=== PATIENT | female | born 1990 | race Hispanic/Latino ===

== ENCOUNTER 2017-06-05 00:26 | Emergency (ER) | payer OTHER ==
[~2017-06-05 00:26] MED LIST: AMOXICILLIN500 MG PO; DIFLUCAN150 MG PO; FLAGYL500 MG OR; FLONASE NASAL50 MCG; MIRENA; PARAGARD EX; ZPAK PO
[2017-06-05] MEDS ORDERED: MONONESSA PO (01:03)
[2017-06-05 01:20] LABS: HEMATOCRIT 41.7 % (37.0-47.0); HEMOGLOBIN 14.6 g/dl (12.0-16.0); IMMATURE GRANULOCYTES 0.5 % (0.0-1.0); MEAN CELL VOLUME 87.2 fL CALC (80.0-100.0); MEAN CORPUSCULAR HGB 30.5 pG CALC (26.0-32.0); NEUT# 5.92 thou/uL (2.00-7.15); RED BLOOD COUNT 4.78 mill/uL (4.20-5.60); RED CELL DISTRI WIDTH 12.6 % (11.5-15.5)
[2017-06-05 01:21] LABS: URINE BILIRUBIN - DIPSTICK NEGATIVE (NEGATIVE); URINE BLOOD DIPSTICK SMALL (NEGATIVE); URINE CLARITY CLEAR; URINE COLOR YELLOW; URINE GLUCOSE - DIPSTICK NEGATIVE (NEGATIVE); URINE KETONE NEGATIVE (NEGATIVE); URINE LEUK ESTERASE NEGATIVE (NEGATIVE); URINE NITRITE - DIPSTICK NEGATIVE (Negative); URINE PROTEIN - DIPSTICK NEGATIVE (NEG-TRACE); URINE SPECIFIC GRAVITY <=1.005; URINE UROBILINOGEN - DIPSTICK 0.2 E.U./dL (0.2)
[2017-06-05 01:27] LABS: URINE MUCUS FEW hpf (NONE-FEW); URINE SQUAMOUS EPITHELIAL CELL FEW EPI/hpf (0-FEW); URINE WBC 0-2 WBC/hpf (0-5)
[2017-06-05 01:30] LABS: ALBUMIN 4.3 g/dL (3.2-5.0); ALKALINE PHOSPHATASE 93 u/l (38-126); ANION GAP 18 (6-22 (CALC)); BILIRUBIN, TOTAL 0.6 mg/dL (0.0-1.4); BUN 7 mg/dL (7-17); BUN/CREATININE RATIO 14 (12-20 (CALC)); CALCIUM 9.6 mg/dL (8.4-10.2); CARBON DIOXIDE 23 mmol/l (22-30); CHLORIDE 103 mmol/l (95-108); CREATININE 0.5 mg/dL (0.5-1.0); GFR > 60 ML/MIN (>=60 (CALC)); GFR FOR AFR.AMER. > 60 ML/MIN (>=60 (CALC)); GLUCOSE 84 mg/dL (65-105); POTASSIUM 3.5 mmol/l (3.5-5.1); SGOT/AST 34 u/l (14-36); SGPT/ALT 50 u/l (9-52); SODIUM 140 mmol/l (137-146); TOTAL PROTEIN 7.4 g/dL (6.3-8.2)
[2017-06-05] MEDS ORDERED: BENTYL20 MG PO (03:09)
[2017-06-05] MEDS ORDERED: TORADOL PO (03:09)
[2017-06-05] MEDS ORDERED: ZOFRAN ODT4 MG PO (03:27)
[2017-06-05 03:30] VITALS: BP 110/60
== END 2017-06-05 03:35 | disposition home or self-care (01) | DRG 392 ==
LOC: ED 00:26
PROVIDERS: Emergency Medicine
DX: K52.9 Noninfective gastroenteritis and colitis, unspecified (principal)
CPT/HCPCS: Q9967

== ENCOUNTER 2018-05-23 23:01 | Emergency (ER) | payer OTHER ==
[~2018-05-23] VITALS: Ht 157.5 cm; Wt 82.0 kg
[~2018-05-23 23:01] MED LIST changes: +BENTYL20 MG PO; +MONONESSA PO; +TORADOL PO; +ZOFRAN ODT4 MG PO
[2018-05-24 00:13] VITALS: BP 122/67
== END 2018-05-24 00:17 | disposition home or self-care (01) | DRG 951 ==
LOC: ED 23:01
DX: Z20.818 Contact with and (suspected) exposure to other bacterial communicable diseases (principal)

== ENCOUNTER 2019-09-18 | Emergency (ER) | payer OTHER | END 2019-09-18 16:40 | disposition home or self-care (01) | DRG 951 | DX: Z20.89 Contact with and (suspected) exposure to other communicable diseases (principal) ==